=== PATIENT | female | born 1970 | race Caucasian/White ===

== ENCOUNTER 2019-04-07 07:53 | Day surgery (SDC) | payer OTHER ==
[2019-04-07 08:10] LABS: Specific Gravity 1.015 (1.005-1.030); Urine Appearance CLEAR; Urine Bilirubin NEGATIVE (NEG); Urine Blood NEGATIVE (NEG); Urine Color YELLOW; Urine Glucose NEGATIVE (NEG); Urine Protein NEGATIVE (NEG); Urine Specific Gravity 1.015 (1.005-1.030); Urine Urobilinogen 0.2 mg/dL (0.2-1.0)
[2019-04-07 08:11] LABS: Absolute Lymphocytes (CBC) 2.5 K/uL (0.7-4.9); Eosinophils % 8.3 % (0-4.4); Hematocrit 45.7 % (36.0-45.0); Lymphocytes % 28.2 % (15.3-44.8); MPV 10.1 fL (7.6-11.3); Monocytes % 6.6 % (3.3-12.3); RBC Red Blood Cell Count 4.75 M/uL (3.86-4.86)
[2019-04-07] MEDS ORDERED: Ringers Lactate 1,000 ML IV ONE ×3 (08:28→12:11)
[2019-04-07] MEDS ORDERED: CEFAZOLIN/SWI 1gm 1 GM/10 ML SYR ONE ×2 (08:28→09:02)
[2019-04-07] MEDS ORDERED: dexAMETHasone 10 MG/ML VIAL ONE (08:47)
[2019-04-07] MEDS ORDERED: ROCURONIUM 50 MG/5 ML VIAL IV ONE (08:47)
[2019-04-07] MEDS ORDERED: FENTANYL CITR 100 MCG/2 ML ONE (08:47)
[2019-04-07] MEDS ORDERED: LIDOCAINE 2% MPF 5 ML VIAL ONE (08:47)
[2019-04-07] MEDS ORDERED: ONDANSETRON 4 MG/2 ML VIAL ONE (08:47)
[2019-04-07] MEDS ORDERED: MIDAZOLAM HCL 2 MG/2 ML INJ ONE (08:47)
[2019-04-07] MEDS ORDERED: PROPOFOL 200 MG/20 ML VIAL IV ONE (08:47)
[2019-04-07 08:58] LABS: Urine Microscopic Reflex ORDER UMIC
[2019-04-07 08:59] LABS: Urine Bacteria <20 /HPF (<20); Urine Culture Reflex Order NOT NEEDED; Urine RBC <5 /HPF (NONE SEEN)
[2019-04-07] MEDS ORDERED: NS 0.9% VIAL 10 ML ONE (09:01)
[2019-04-07] MEDS ORDERED: GENTAMICIN SULF 80 MG/2ML INJ ONE (09:01)
[2019-04-07] MEDS ORDERED: Mastisol Adhesive Liq ONE (09:01)
[2019-04-07] MEDS ORDERED: BACITRACIN 50000 UNIT VIAL ONE (09:02)
[2019-04-07] MEDS ORDERED: SCOPOLAMINE HYDROBROMIDE PATCH TD ONE (09:40)
[2019-04-07] MEDS ORDERED: FENTANYL CITR 250 MCG/5 ML ONE (10:49)
[2019-04-07] MEDS ORDERED: GLYCOPYRROLATE 0.2 MG/ML SYR ONE (11:08)
[2019-04-07] MEDS ORDERED: KETOROLAC 30 MG/ML INJ ONE (14:00)
[2019-04-07] MEDS: MORPHINE 4 MG/ML SYR ONE ×4 (14:35→15:18)
[2019-04-07] MEDS ORDERED: HYDROCODONE/APAP 10/325 TAB ONE (16:31)
--- NOTE | 2019-04-08 02:16 | OP ---
Surgeon: Joshua Lua MD Preoperative Diagnosis: Breast descent, status post breast augmentation. Postoperative Diagnosis: Breast descent, status post breast augmentation. Procedure: Explantation of 512 saline prepectoral left and breast lift. Anesthesia: General. Description Of Procedure: After satisfactory induction of general anesthesia, the chest was prepped with DuraPrep and dry sterile drapes applied in usual manner. A 42 template was used to outline the right and left areolas. Then, transverse curvilinear incision was made. The intervening skin was de -epithelialized with a dermabrader. This was done on both sides. Then, the transverse incision was elevated and incised full thickness. On the right side, flap dissected down to approximately 1.2 cm thick and elevated toward the sternum, clavicle, anterior axillary line. The breast capsule was enco untered at the depth to be dissected when we got cephalad and the capsule was opened. The implant wa s removed. It was saline filled implant, was weighing 512 g. Attention was turned to the inferior i ncision. It was then made and intervening skin was rotated into a cone, extended using 2-0 PDS sutur es. Straps were elevated at 12 o'clock, 1:30, and 3 o'clock positions. The straps were then woven i n and out the pectoralis major muscle, back to the base of the cone, back to flexor muscles, and back to the base of the cone, and eventually tied to themselves with 2-0 PDS. The 3 o'clock strap was se wn over sternum at the 3 o'clock position with 2-0 . The left side was done in a mirror im age manner. The wound was rotated asymmetry. The patient was then placed recumbent. Dog ears resected laterally on both breasts and then a 10 LINDA was brought out of the axilla. Wound was i rrigated with antibiotic solution and wound closed with 3-0 Vicryl on subcu, 3-0 PDS running subcutic ular tied in the vertical meridian of the breast. Left side was done in an identical manner. Then, the patient was sat up. Site for new nipple-areolar complex was marked out. Nipples were delivered and areola was delivered. Tissue was cored out with electrocautery and suture was closed with 4-0 PD S interrupted, followed by 4-0 PDS running subcuticular. The LINDA drains were sewn in place with 2-0 s ilk, thin flaps were used. Dressings consisted of tincture of benzoin, Steri-Strips, 5x5s, fluffs, a nd Seun wrap. The patient tolerated the procedure well and returned to recovery room. Amount of tiss ue removed from right breast was 28 g and left breast was 58 g. VICKI/VASHTI Voice ID: [id number] Report ID: [id number]
== END 2019-04-07 17:00 | disposition home or self-care (01) ==
LOC: OR 07:53
PROVIDERS: ATTEND Specialist
PROC: 0HPT0JZ Removal of Synthetic Substitute from Right Breast, Open Approach (ICD-10-PCS; 2019-04-07)
PROC: 0HSV0ZZ Reposition Bilateral Breast, Open Approach (ICD-10-PCS; 2019-04-07)
PROC: 0HPU0JZ Removal of Synthetic Substitute from Left Breast, Open Approach (ICD-10-PCS; principal; 2019-04-07 10:00)
DX: N65.1 Disproportion of reconstructed breast (principal)
CPT/HCPCS: 36415; 81003; 81015; 81025; 85025; 88300; 88305; J0690; J1100; J1580; J2250; J2405; J2704; J3010